=== PATIENT | female | born 1995 | race Two or more races ===

== ENCOUNTER 2024-04-04 11:00 | Emergency (ER) | payer MEDICAID, OTHER ==
[~2024-04-04] VITALS: Ht 157.5 cm; Wt 68.3 kg
[2024-04-04 11:16] VITALS: BP 133/87; PULSE 110; RESP 16; O2SAT 98
[2024-04-04] MEDS ORDERED: MAALOX PLUS or MAALOX 30 ML PO ONE (12:15)
[2024-04-04 13:48] LABS: Urine Bacteria None Seen /hpf (None Seen); Urine WBC None Seen /hpf (0 - 5)
[2024-04-04 14:19] LABS: Urine Amorphous Crystal MOD /hpf (None Seen); Urine Blood Negative /uL (Negative); Urine Clarity Ex.Turbid (Clear); Urine Mucus MODERATE (None Seen); Urine Protein, UAD 1+ (Negative); Urine Specific Gravity 1.026 (1.001-1.035); Urine Urobilinogen Normal (Negative); Urine pH 5.5 (5.0-9.0)
[2024-04-04 14:20] LABS: Urine Color Dark-Yellow (Yellow)
== END 2024-04-04 15:12 | disposition left against medical advice (07) ==
LOC: ER 11:00
DX: R10.13 Epigastric pain (principal); R11.2 Nausea with vomiting, unspecified
CPT/HCPCS: 81001